=== PATIENT | male | born 1970 | race African-American/Black ===

== ENCOUNTER 2018-04-29 19:13 | Emergency (ER) | payer OTHER ==
[~2018-04-29] VITALS: Ht 172.7 cm; Wt 83.9 kg
[2018-04-29 19:21] VITALS: BP_SYST 143
[2018-04-29] MEDS ORDERED: KETOROLAC TROMETHAMINE 60 MG/2 ML VIAL IM ONE (19:30)
[2018-04-29 20:14] VITALS: BP_SYST 128
== END 2018-04-29 20:14 | disposition home or self-care (01) ==
LOC: SED 19:13
DX: S29.012A Strain of muscle and tendon of back wall of thorax, initial encounter (principal); R03.0 Elevated blood-pressure reading, without diagnosis of hypertension; E78.5 Hyperlipidemia, unspecified; X58.XXXA Exposure to other specified factors, initial encounter; Y93.89 Activity, other specified; Y92.89 Other specified places as the place of occurrence of the external cause; Y99.8 Other external cause status
CPT/HCPCS: 96372; 99283; J1885

== ENCOUNTER 2022-04-06 19:34 | Emergency (ER) | payer OTHER ==
[~2022-04-06] VITALS: Ht 172.7 cm; Wt 79.4 kg
[2022-04-06 20:20] VITALS: BP_SYST 152
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
--- NOTE | 2022-04-06 23:19 | NUR ---
MD Cano at bedside examining pt.
[2022-04-06] MEDS ORDERED: IBUP-1971 PO (23:28)
[2022-04-06] MEDS ORDERED: HYDR-3917 PO (23:28)
[2022-04-06] MEDS ORDERED: KETOROLAC TROMETHAMINE 60 MG/2 ML VIAL IM ONE (23:30)
[2022-04-06 23:37] VITALS: BP_SYST 147
== END 2022-04-06 23:34 | disposition home or self-care (01) ==
LOC: SED 19:34
DX: S13.4XXA Sprain of ligaments of cervical spine, initial encounter (principal); M54.50 Low back pain, unspecified; M25.562 Pain in left knee; E78.5 Hyperlipidemia, unspecified; Z79.899 Other long term (current) drug therapy; V49.40XA Driver injured in collision with unspecified motor vehicles in traffic accident, initial encounter; Y93.89 Activity, other specified; Y92.89 Other specified places as the place of occurrence of the external cause; Y99.8 Other external cause status
CPT/HCPCS: 99283; 96372; J1885